=== PATIENT | female | born 2000 | race Caucasian/White ===

== ENCOUNTER 2023-10-21 12:55 | Emergency (ER) | payer MEDICAID ==
[~2023-10-21] VITALS: Ht 165.1 cm; Wt 72.0 kg
[2023-10-21 13:47] LABS: URINE HCG NEGATIVE (NEG)
[2023-10-21] MEDS: ketorolac trometh. 30mg/ml inj. IM ONE (14:47)
[2023-10-21] MEDS: diphenhydrAMINE 50 mg/ml inj IM ONE (14:48)
[2023-10-21] MEDS: metoclopramide 5 mg/ml inj IM ONE (14:48)
[2023-10-21] MEDS: dexamethasone sod phosphate 10mg/ml inj PO STA (14:49)
[2023-10-21 14:59] VITALS: BP 114/78; PULSE 58; RESP 15; TEMP 97.9; O2SAT 98
== END 2023-10-21 15:02 | disposition home or self-care (01) ==
LOC: ER 12:57
DX: G43.909 Migraine, unspecified, not intractable, without status migrainosus (principal)
CPT/HCPCS: 70450; 81025; 96372; 99285; J1100; J1200; J1885; J2765

== ENCOUNTER 2024-02-19 19:07 | Emergency (ER) | payer MEDICAID ==
[~2024-02-19] VITALS: Ht 165.1 cm; Wt 75.0 kg
[2024-02-19] MEDS ORDERED: PRED20TA PO (19:47)
[2024-02-19] MEDS ORDERED: HYDR-3686 PO (19:47)
[2024-02-19] MEDS ORDERED: ALBU18HF2 INH (19:47)
[2024-02-19] MEDS: diphenhydrAMINE 25mg capsule PO ONE (19:50)
[2024-02-19] MEDS: predniSONE 20 mg tablet PO ONE (19:51)
[2024-02-19 20:02] LABS: STREP A SCREEN NEGATIVE (Neg)
[2024-02-19 20:17] VITALS: PULSE 118; O2SAT 99
[2024-02-19] MEDS: albuterol 2.5 MG/3 ML nebule NEB ONE (20:17)
[2024-02-19 20:25] VITALS: PULSE 93; RESP 16
[2024-02-19 20:30] VITALS: BP 124/78; PULSE 99; RESP 20; TEMP 98.6; O2SAT 98
== END 2024-02-19 20:32 | disposition home or self-care (01) ==
LOC: ER 19:07
DX: L50.9 Urticaria, unspecified (principal); Z79.899 Other long term (current) drug therapy
CPT/HCPCS: 87081; 87880; 94640; 99283; J7512; Q0163; 94760

== ENCOUNTER 2024-10-31 14:10 | Outpatient (CLI) | payer MEDICAID ==
[~2024-10-31 14:10] MED LIST: ALBU18HF2 INH
--- NOTE | 2024-10-31 15:19 | RADIOLOGY REPORT ---
CLINICAL HISTORY: CHRONIC MIGRAINE W/O AURA, INTRACTABLE, W/O STAT MIGR TECHNIQUE: Routine multiplanar imaging of the brain was performed without gadolinium contrast. COMPARISON: CT CT HEAD on DOS: 10/21/23 FINDINGS: There is no abnormal restricted diffusion to suggest acute infarction. There are no significant chronic small vessel ischemic foci. There is no evidence for acute ischemic changes, mass, mass effect, or extra-axial fluid collection. There is no hydrocephalus or midline shift. The cerebral sulci and subarachnoid cisterns are not effa karolyn. The imaged paranasal sinuses are clear. The globes are intact. The midline structures, including the corpus callosum, are unremarkable. The intracranial flow voids are maintained. IMPRESSION: No significant MRI abnormality of the brain.
== END 2024-10-31 23:59 | disposition home or self-care (01) ==
LOC: MRI 14:10
PROVIDERS: ATTEND Neuromusculoskeletal Medicine & OMM
DX: G43.719 Chronic migraine without aura, intractable, without status migrainosus (principal)
CPT/HCPCS: 70551

== ENCOUNTER 2024-11-07 18:39 | Emergency (ER) | payer MEDICAID ==
[~2024-11-07] VITALS: Ht 165.1 cm; Wt 66.9 kg
[2024-11-07 18:49] VITALS: BP 112/75; PULSE 61; RESP 15; TEMP 97.6; O2SAT 98
--- NOTE | 2024-11-07 19:13 | Physician Documentation ---
History of Present Illness ~ Chief Complaint: Mouth Pain Stated Complaint: MOUTH INFECTION Time Seen by MD: 18:56 HPI This is a 24-year-old female who presents with painful sores to her inner lower lip and under her tongue present for the past a proximally four days, patient reports no other acute symptoms or concerns. Medication Reconciliation Allergies: Coded Allergies: No Known Allergies (Unverified , 11/07/24) Scheduled Albuterol Sulfate (Ventolin Hfa), 2 PUFFS INH Q4HPRN Lidocaine HCl (Lidocaine HCl Viscous), 5 ML PO Q8H Valacyclovir HCl (Valacyclovir), 1 TAB PO BID Scheduled PRN Diphenhydramine HCl (Diphenhydramine HCl), 5 ML PO Q8H PRN for mouth sores Mag Hydrox/Al Hydrox/Simeth* (Maalox Advanced Suspension*), 5 ML PO Q8H PRN for mouth sores Past Medical History Past Medical History: No Pertinent History Review of Systems ROS As stated above in the HPI, otherwise all systems are reviewed and negative. Physical Exam Vital Signs: Temperature: 97.6, Source: Temporal, Heart Rate: 61, Respiratory Rate: 15, BP: 112/75, Pulse Oximetry: 98, Weight: 66.870 Physical Exam VITALS: Reviewed and as above. GENERAL: Alert, nontoxic appearing, no apparent distress. HEENT: Vesicular lesions on erythematous base to instead of lower inner lip and inferior surface of tongue, no lesions to pharynx RESPIRATORY: No increased work of breathing, no respiratory distress, speaking in full clear sentences Progress Results/Orders Results/Orders Vital Signs 11/07/24 18:49 Temp 97.6 Pulse 61 Resp 15 B/P (MAP) 112/75 Pulse Ox 98 Medical Decision Making Findings This is a 24-year-old female who presents with a painful vesicular lesions on erythematous base to interior lower lip and inferior surface of tongue consistent with herpetic lesions, patient reported no other acute symptoms and remainder of physical exam was benign. Treatment with oral antiviral and topical anesthetics. Patient is appropriate for outpatient follow up. Throat Diff Dx: Considerations: Include: Esophageal candidiasis, Hand foot mouth disease, Herpangina, Herpetic stomatitis, Herpes simplex, Infection mononucleosis, Solis's angina, Peritonsillar cellulitis, Pharyngitis- diphtheria, Pharyngitis-strepococcal, Pharyngitis-viral, Thrush Departure Time of Disposition: 19:13 Disposition: 01 HOME / SELF CARE / HOMELESS Impression: Primary Impression: Herpetic lesion Condition: Improved Discharge Instructions: Hand, Foot, and Mouth Disease, Adult Additional Instructions: Please take the oral antiviral as prescribed. Please use the prescribed magic mouthwash as needed for mouth pain. Please follow up with your primary care provider in the next few days. Please return to the emergency department for any new or worsening concerning symptoms. Magic mouthwash instructions: Mix the ingredients prescribed for the magic mouthwash in equal parts and then swish and spit every 6-8 hours as needed. Referrals: NO PRIMARY CARE PROVIDER (PCP) Prescriptions Mag Hydrox/Al Hydrox/Simeth* (Maalox Advanced Suspension*) 200 Mg-200 Mg-20 Mg/5 Ml Oral.susp 5 ML PO Q8H PRN for mouth sores for 6 Days, #100 ML Swish and Spit Prov: SUKUMAR MORSEP 11/07/24 Lidocaine HCl (Lidocaine HCl Viscous) 2 % Solution 5 ML PO Q8H for mouth sore pain for 6 Days, #100 ML 0 Refills Swish and Spit Prov: SUKUMAR MORSE [facility] 11/07/24 Diphenhydramine HCl (Diphenhydramine HCl) 12.5 Mg/5 Ml Elixir 5 ML PO Q8H PRN for mouth sores for 6 Days, #120 ML 0 Refills Swish and Spit Prov: SUKUMAR MORSE [facility] 11/07/24 Valacyclovir HCl (Valacyclovir) 1,000 Mg Tablet 1 TAB PO BID for 10 Days, #20 TAB 0 Refills Prov: SUKUMAR MORSE [facility] 11/07/24 Education Educated: Patient Educated regarding: diagnosis, treatment, prognosis, need for follow up Signature Scribe Signature: No scribe Attestation: The note accurately reflects work and decisions made by me.DEQUAN Garcia 11/07/24 20:29 SUKUMAR MORSE [facility] Nov 07, 2024 19:13
[2024-11-07] MEDS ORDERED: MAG355OR18 PO (19:21)
[2024-11-07] MEDS ORDERED: DIPH-930 PO (19:21)
[2024-11-07] MEDS ORDERED: LIDO15SO9 PO (19:21)
[2024-11-07] MEDS ORDERED: VALA100031 PO (19:21)
== END 2024-11-07 19:33 | disposition home or self-care (01) ==
LOC: ER 18:41
DX: B00.9 Herpesviral infection, unspecified (principal)
CPT/HCPCS: 99283